=== PATIENT | male | born 1955 | race Caucasian/White ===

== ENCOUNTER 2021-08-11 14:43 | Inpatient (IN) | payer OTHER ==
[~2021-08-11] VITALS: Ht 177.8 cm; Wt 142.9 kg
[2021-08-11 15:33] LABS: HEMOGLOBIN 17.5 gm/dl (14.0-17.5); RED BLOOD COUNT 5.34 M/UL (4.20-5.50); WHITE BLOOD COUNT 18.1 K/UL (4.5-11.0)
[2021-08-11 15:52] LABS: BUN/CREATININE RATIO 17 (0-10)
[2021-08-11] MEDS ORDERED: PROVENTIL HFA6.7 GM INH (20:02)
[2021-08-11] MEDS ORDERED: BREZTRI AEROS10.7 GM INH (20:03)
[2021-08-11] MEDS ORDERED: HYDROCHLOROTHIA25 MG PO (20:04)
[2021-08-11] MEDS ORDERED: MELOXICAM15 MG PO (20:04)
[2021-08-11] MEDS ORDERED: GABAPENTIN400 MG PO (20:04)
[2021-08-11] MEDS ORDERED: HYDROCODON-ACE1 EAC6 PO (20:04)
[2021-08-11] MEDS ORDERED: LISINOPRIL20 MG PO (20:04)
[2021-08-12 03:23] LABS: BUN/CREATININE RATIO 22 (0-10)
[2021-08-12 03:44] LABS: HEMOGLOBIN 17.1 gm/dl (14.0-17.5); RED BLOOD COUNT 5.31 M/UL (4.20-5.50); WHITE BLOOD COUNT 19.4 K/UL (4.5-11.0)
[2021-08-14 08:07] LABS: HEMOGLOBIN 13.8 gm/dl (14.0-17.5); RED BLOOD COUNT 4.31 M/UL (4.20-5.50)
[2021-08-14 08:13] LABS: BUN/CREATININE RATIO 15 (0-10)
[2021-08-14] MEDS ORDERED: ASPIRIN EC81 MG PO (11:05)
[2021-08-14] MEDS ORDERED: ELIQUIS5 MG PO (11:06)
--- NOTE | 2021-08-14 14:54 | NUR ---
PT OFF UNIT VIA WC PER TRANSPORT, PER POLICY, W/PT
== END 2021-08-14 14:52 | disposition home or self-care (01) | DRG 682 ==
LOC: ER1 14:43 → M/S 17:11 → CCU 17:11 → CDU 17:11 → CCU 19:30 → M/S 08-12 16:01
PROVIDERS: Emergency Medicine; Physician Assistant Medical; ADMIT Internal Medicine
PROC: 3E033XZ Introduction of Vasopressor into Peripheral Vein, Percutaneous Approach (ICD-10-PCS; principal; 2021-08-11)
PROC: B24BZZZ Ultrasonography of Heart with Aorta (ICD-10-PCS; 2021-08-13)
DX: N17.9 Acute kidney failure, unspecified (principal); R57.1 Hypovolemic shock; L03.311 Cellulitis of abdominal wall; I20.0 Unstable angina; Z68.42 Body mass index [BMI] 45.0-49.9, adult; I48.91 Unspecified atrial fibrillation; E87.6 Hypokalemia; I44.7 Left bundle-branch block, unspecified; I10 Essential (primary) hypertension; G89.4 Chronic pain syndrome; E66.01 Morbid (severe) obesity due to excess calories; R19.7 Diarrhea, unspecified; M06.9 Rheumatoid arthritis, unspecified; Z20.822 Contact with and (suspected) exposure to COVID-19; M19.90 Unspecified osteoarthritis, unspecified site; I08.8 Other rheumatic multiple valve diseases; Z79.82 Long term (current) use of aspirin; Z87.891 Personal history of nicotine dependence; Z82.49 Family history of ischemic heart disease and other diseases of the circulatory system; Z98.890 Other specified postprocedural states; Z82.3 Family history of stroke; Z79.01 Long term (current) use of anticoagulants; I25.2 Old myocardial infarction
CPT/HCPCS: ECHO; 36415; 71045; 80048; 80053; 80061; 81001; 82550; 82553; 83605; 83735; 83874; 83880; 84439; 84443; 84484; 85025; 85027; 85379; 85610; 85730; 87040; 93005; 93306; 94640; 94760; 96374; 99285; J0696; J1650; J7030; J7070; Q9967; U0002